=== PATIENT | female | born 1980 | race Caucasian/White ===

== ENCOUNTER → 2018-05-29 | Outpatient (CLI) | payer OTHER ==
[2018-05-29 17:24] LABS: ABSOLUTE EOSINOPHILS # (AUTO) 0.1 10^3/uL (0.0-0.6); ABSOLUTE LYMPHOCYTES (AUTO) 1.8 10^3/uL (0.5-4.7); ABSOLUTE MONOCYTES (AUTO) 0.4 10^3/uL (0.1-1.4); ABSOLUTE NEUT (AUTO) 3.7 10^3/uL (1.7-8.2); BASOPHILS % (AUTO) 0.7 % (0-2); EOSINOPHILS % (AUTO) 1.6 % (0-6); HEMATOCRIT 38.7 % (36.0-47.0); HEMOGLOBIN 13.3 g/dL (12.0-15.5); LYMPHOCYTES % (AUTO) 30.3 % (13-45); MEAN CORPUSCULAR HEMOGLOBIN 30.1 pg (27.0-33.4); MEAN CORPUSCULAR HGB CONC 34.3 g/dL (32.0-36.0); MEAN CORPUSCULAR VOLUME 88 fl (80-97); MONOCYTES % (AUTO) 6.1 % (3-13); PLATELET COUNT 312 10^3/uL (150-450); RED BLOOD COUNT 4.41 10^6/uL (3.72-5.28); RED CELL DISTRIBUTION WIDTH 13.6 % (11.5-14.0); SEGMENTED NEUTROPHILS % (AUTO) 61.3 % (42-78); TOTAL CELLS COUNTED % (AUTO) 100 %
[2018-05-29 17:53] LABS: URIC ACID 5.6 mg/dL (2.5-7.0)
[2018-05-29 17:57] LABS: C-REACTIVE PROTEIN < 5.0 mg/L (<10.0)
[2018-05-29 18:14] LABS: ERYTHROCYTE SEDIMENTATION RATE 11 mm/hr (0-20)
[2018-06-02 11:29] LABS: CYCLIC CITRUL PEPTIDE IGG/A AB 7 units (0-19)
[2018-06-04 10:10] LABS: HLA B 27 DISEASE ASSOCIATION Negative (.)
== END ==
LOC: OD 16:40
PROVIDERS: ATTEND Family Medicine
DX: M65.162 Other infective (teno)synovitis, left knee (principal)
CPT/HCPCS: 36415; 82306; 84550; 85025; 85652; 86038; 86140; 86200; 86430; 86812

== ENCOUNTER → 2019-07-02 | Outpatient (CLI) | payer OTHER | LOC: OD 15:09 | PROVIDERS: ATTEND Specialist | DX: N94.4 Primary dysmenorrhea (principal) | CPT/HCPCS: 88305 ==

== ENCOUNTER 2019-12-19 05:25 | Day surgery (SDC) | payer OTHER ==
[2019-12-12 08:57] LABS: HEMATOCRIT 36.2 % (36.0-47.0); HEMOGLOBIN 12.9 g/dL (12.0-15.5); MEAN CORPUSCULAR HEMOGLOBIN 31.2 pg (27.0-33.4); MEAN CORPUSCULAR HGB CONC 35.5 g/dL (32.0-36.0); MEAN CORPUSCULAR VOLUME 88 fl (80-97); PLATELET COUNT 307 10^3/uL (150-450); RED BLOOD COUNT 4.11 10^6/uL (3.72-5.28); RED CELL DISTRIBUTION WIDTH 13.6 % (11.5-14.0)
[2019-12-12 09:20] LABS: ANION GAP 11 (5-19); BLOOD UREA NITROGEN 12 mg/dL (7-20); CALCIUM 9.7 mg/dL (8.4-10.2); CARBON DIOXIDE 29 mmol/L (22-30); CHLORIDE 100 mmol/L (98-107); GLUCOSE 83 mg/dL (75-110); POTASSIUM 4.3 mmol/L (3.6-5.0)
[2019-12-12 09:31] LABS: APPEARANCE,URINE CLEAR; BILIRUBIN,URINE NEGATIVE (NEGATIVE); COLOR,URINE YELLOW; GLUCOSE, URINE NEGATIVE (NEGATIVE); KETONES,URINE NEGATIVE (NEGATIVE); LEUKOCYTE ESTERASE,URINE TRACE (NEGATIVE); NITRITE,URINE NEGATIVE (NEGATIVE); PROTEIN,URINE NEGATIVE (NEGATIVE); URINE SPECIFIC GRAVITY 1.006; UROBILINOGEN,URINE NEGATIVE mg/dL (<2.0)
[~2019-12-19 05:25] MED LIST: CEFAZOLIN 1 GM/D5W RTU 1 GM/50 ML RTUPB IV ONE
[2019-12-19] MEDS ORDERED: LIDOCAINE 2% INJ-PF (20 MG/ML) 10 ML AMPUL ONE (07:02)
[2019-12-19] MEDS ORDERED: ONDANSETRON HCL INJ/PF 4 MG/2 ML SDV ONE (07:03)
[2019-12-19] MEDS ORDERED: FENTANYL CITRATE INJ/PF 100 MCG/2 ML AMPUL ONE (07:03)
[2019-12-19] MEDS ORDERED: PROPOFOL INJ 200 MG/20 ML VIAL IV ONE (07:03)
[2019-12-19] MEDS ORDERED: MIDAZOLAM 2 MG/2 ML INJ ONE (07:03)
[2019-12-19] MEDS ORDERED: LIDOCAINE 1% INJ-PF (10 MG/ML) 30 ML SDV ONE (07:05)
[2019-12-19] MEDS ORDERED: DIPHENHYDRAMINE HCL 50 MG/ML VIAL IV PRN (07:22)
[2019-12-19] MEDS ORDERED: FENTANYL CITRATE INJ/PF 100 MCG/2 ML AMPUL IV PRN ×3 (07:22)
[2019-12-19] MEDS ORDERED: PROMETHAZINE HCL INJ 25 MG/1 ML VIAL IV PRN ×2 (07:22)
[2019-12-19] MEDS ORDERED: MORPHINE SULFATE 10 MG/ML INJ IV PRN (07:22)
[2019-12-19] MEDS ORDERED: OXYCODONE-ACETAMINOPHEN 5-325 MG TABLET PO PRN ×3 (07:22→08:22)
[2019-12-19] MEDS ORDERED: MEPERIDINE HCL/PF INJ 25 MG/1 ML DISP.SYRIN IV PRN (07:22)
--- NOTE | 2019-12-19 07:54 | Operative Report ---
Operative Report DATE OF SURGERY: 12/19/19 PREOPERATIVE DIAGNOSIS: Menorrhagia POSTOPERATIVE DIAGNOSIS: Same OPERATION: Hysteroscopy NovaSure ablation SURGEON: NIA GRACE ANESTHESIA: LMAC TISSUE REMOVED OR ALTERED: None COMPLICATIONS: None ESTIMATED BLOOD LOSS: 5 mL's INTRAOPERATIVE FINDINGS: Normal endometrial cavity, 93 W seconds of power for 1 minute and 45 seconds PROCEDURE: INDICATIONS FOR PROCEDURE: The patient had abnormal uterine bleeding for several months unresponsive to usual outpatient management. The usual risks of bleeding, infection, anesthesia, and damage to organs and tissues had been discussed with the patient and understood. No guarantee of complete ammenorrhea has been established. Fertility is not an option. PROCEDURE: The patient was taken to the operating room, placed in a modified lithotomy position. After adequate anesthesia was ascertained, we prepped and draped in the usual manner for a hysteroscopy . Paracervical block done. The cervix readily admitted dilators. A single-tooth tenaculum was placed on the anterior lip of the cervix after anesthesia was instilled. Hysteroscopy ensued. A endometrial cavity was noted and measurements taken. Novasure was deployed and fired. 1:45sec, 94 w-s power Re-scope confirmed good burn and integrity of the organ. Bleeding was nil at the completion of the procedure .
[2019-12-19] MEDS ORDERED: MORPHINE SULFATE 10 MG/ML INJ INJ PRN (08:22)
[2019-12-19] MEDS ORDERED: PROMETHAZINE HCL INJ 25 MG/1 ML VIAL IM PRN (08:23)
[2019-12-19] MEDS ORDERED: IBUPROFEN 800 MG TABLET PO SCH (10:00)
[2019-12-19 10:19] VITALS: BP 113/74
== END 2019-12-19 09:20 | disposition home or self-care (01) ==
LOC: OROUT 05:25
PROVIDERS: ATTEND Specialist
DX: N92.0 Excessive and frequent menstruation with regular cycle (principal); E07.9 Disorder of thyroid, unspecified; Z79.899 Other long term (current) drug therapy; Z88.2 Allergy status to sulfonamides; Z88.1 Allergy status to other antibiotic agents
CPT/HCPCS: 36415 ×2; 84703; 85027; 80048; 81001; 00952; 58563; J2250; J0690; J3010; J3490 ×2; J2405; J2704; 952

== ENCOUNTER → 2020-06-02 | Outpatient (CLI) | payer OTHER ==
--- NOTE | 2020-06-02 13:22 | WOMENS IMAGING REPORT ---
EXAM DESCRIPTION: BILAT SCREENING MAMMO W/CAD IMAGES COMPLETED DATE/TIME: 06/02/2020 8:31 am REASON FOR STUDY: Z12.31 ENCNTR SCREEN MAMMOGRAM FOR MALIGNANT NEOPLASM OF [id number] ENCNTR SCRE EN MAMMOGRAM FOR MALIGNANT NEOPLASM OF JUANCARLOS COMPARISON: None. EXAM PARAMETERS: Standard craniocaudal and mediolateral oblique views of each breast recorded using digital acquisition. Read with the assistance of CAD. .[facility] - [employer] Version 9.2 LIMITATIONS: None. FINDINGS: RIGHT BREAST MASSES: No suspicious masses. CALCIFICATIONS: No new or suspicious calcifications. ARCHITECTURAL DISTORTION: None. ASYMMETRY: None noted. OTHER: No other significant findings. LEFT BREAST MASSES: No suspicious masses. CALCIFICATIONS: No new or suspicious calcifications. ARCHITECTURAL DISTORTION: Questionable small spiculated mass in the deep breast adjacent to the chest wall, visualized on the MLO image, located 9 cm hernia. ASYMMETRY: None noted. OTHER: No other significant findings. IMPRESSION: Questionable small spiculated mass in the deep left breast. No worrisome mammographic f indings in the right breast. 0 Incomplete: Needs Additional Imaging Evaluation and/or prior Mammograms for Comparison. BREAST DENSITY: c. The breasts are heterogeneously dense, which may obscure small masses. BIRAD: ASSESSMENT: 0 Incomplete: Needs Additional Imaging Evaluation and/or prior Mammograms for C omparison. RECOMMENDATION: RECOMMENDED FOLLOW-UP: Recommend additional evaluation with compression views of the left breast and ultrasound of the left breast. Recommend routine screening mammography of the right breast. The patient will be contacted for additional imaging. COMMENT: The patient has been notified of the results by letter per SA requirements. Additional no tification policies are in place for contacting patient with suspicious or incomplete findings. Quality ID #225: The [employer] recommends an annual screening mammogram for women aged 40 years or over. This facility utilizes a reminder system to ensure that all patients receive reminder letters, and/or direct phone calls for appointments. This includes reminders for routine scr eening mammograms, diagnostic mammograms, or other Breast Imaging Interventions when appropriate. Th is patient will be placed in the appropriate reminder system. TECHNICAL DOCUMENTATION: FINDING NUMBER: (1) ASSESSMENT: (1) JOB ID: [id number] 2010 [employer]- All Rights Reserved Reading location - IP/workstation name: [email or web address]
== END ==
LOC: WI 08:13
PROVIDERS: ATTEND Physician Assistant
DX: Z12.31 Encounter for screening mammogram for malignant neoplasm of breast (principal); N64.89 Other specified disorders of breast
CPT/HCPCS: 77067

== ENCOUNTER → 2020-06-09 | Outpatient (CLI) | payer OTHER ==
--- NOTE | 2020-06-09 09:51 | WOMENS IMAGING REPORT ---
EXAM DESCRIPTION: LEFT DIAGNOSTIC MAMMO W/CAD; U/S BREAST UNILAT LIMITED IMAGES COMPLETED DATE/TIME: 06/09/2020 8:25 am; 06/09/2020 9:26 am REASON FOR STUDY: R92.2 INCONCLUSIVE MAMMOGRAM; R92.2 R92.2 INCONCLUSIVE MAMMOGRAM COMPARISON: 06/02/2020 EXAM PARAMETERS: Full field mediolateral and exaggerated craniocaudal lateral images are supplemente d with spot compression in the MLO, and ML projections. Subsequently, targeted sonographic evaluatio n was performed. LIMITATIONS: None. FINDINGS: BREAST LATERALITY: left MASSES: No suspicious masses. CALCIFICATIONS: No new or suspicious calcifications. ARCHITECTURAL DISTORTION: None. ASYMMETRY: An asymmetric density demonstrated on screening mammography largely disperses with spot co mpression. Targeted sonographic evaluation of the left lateral breast reveals normal underlying mignon st parenchyma. OTHER: No other significant findings. IMPRESSION: No evidence of malignancy on today's examination. BREAST DENSITY: c. The breasts are heterogeneously dense, which may obscure small masses. BIRAD: ASSESSMENT: 1 Negative. RECOMMENDATION: RECOMMENDED FOLLOW UP: Birads 1 or 2: The patient should resume routine screening . SPECIFIC INTERVENTION/IMAGING/CONSULTATION RECOMMENDED:No additional intervention/ imaging/consultati on needed at this time. COMMUNICATION:The imaging findings were not discussed with the patient. Her referring provider has be en notified of the findings. COMMENT: The patient has been notified of the results by letter per SA requirements. Additional no tification policies are in place for contacting patient with suspicious or incomplete findings. Quality ID #225: The [employer] recommends an annual screening mammogram for women aged 40 years or over. This facility utilizes a reminder system to ensure that all patients receive reminder letters, and/or direct phone calls for appointments. This includes reminders for routine scr eening mammograms, diagnostic mammograms, or other Breast Imaging Interventions when appropriate. Th is patient will be placed in the appropriate reminder system. TECHNICAL DOCUMENTATION: FINDING NUMBER: (1) ASSESSMENT: (1) JOB ID: [id number] 2010 [employer]- All Rights Reserved Reading location - IP/workstation name: [email or web address]
== END ==
LOC: WI 07:50
PROVIDERS: ATTEND Physician Assistant
DX: R92.2 Inconclusive mammogram (principal)
CPT/HCPCS: 76642; 77065